=== PATIENT | male | born 1995 | race Caucasian/White ===

== ENCOUNTER 2025-06-23 15:48 | Emergency (ER) | payer SELFPAY ==
[2025-06-23 15:51] VITALS: BP 149/96
[2025-06-23] MEDS: MOTRIN 600 MG PO (17:48)
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
== END 2025-06-23 20:21 | disposition home or self-care (01) ==
LOC: EMR 15:48
PROVIDERS: EMERGENCY PHYSICIAN Emergency Medicine; FAMILY PHYSICIAN Family Medicine
DX: S80.212A Abrasion, left knee, initial encounter (principal); M25.552 Pain in left hip; W19.XXXA Unspecified fall, initial encounter; Y93.89 Activity, other specified; Y92.148 Other place in prison as the place of occurrence of the external cause; Y99.0 Civilian activity done for income or pay
CPT/HCPCS: 99283; 73502; 73564